=== PATIENT | female | born 1990 | race African-American/Black ===

== ENCOUNTER 2017-09-02 15:16 | Inpatient (IN) | payer BC, MEDICAID ==
[~2017-09-02] VITALS: Ht 167.6 cm; Wt 115.0 kg
[~2017-09-02 15:16] MED LIST: LACTATED RINGER'S 1000 ML INJ 1,000 ML IV ONE; ONDANSETRON HCL 4 MG/2 ML VIAL IV ONE; OXYTOCIN 10 UNIT/ML AMP IV ONE; PHENYLEPH/NS 1000 MCG/10 ML SYR IV ONE; ceFAZolin INJ 1,000 MG VIAL IV ONE
--- NOTE | 2017-09-02 15:40 | PD ---
HPI Chief Complaint SROM Date Seen: September 02, 2017 Travel History International Travel<30 Days: No Contact w/Intl Traveler<30Days: No Known Affected Area: No History of Present Illness HPI Patient is a 26-year-old female at 37/1 weeks gestation who was brought in by [facility] due to spontaneous rupture of membranes. Patient denies vaginal bleeding. Endorses contractions and movement. Patient is GBS negative. Denies chest pain shortness of breath, nausea, vomiting, fever or chills. Of note patient did not have a planned repeat scheduled for this as she wanted to attempt . Para: 1 : 2 History Past Medical History Medical History: Denies Significant Hx Obstetric History Obstetric History C/S x1 due to macrosomia no complications with this thus far. Allergies-Medications (Allergen,Severity, Reaction): Coded Allergies: No Known Allergies (Unverified , 09/02/17) Home Meds Reported Medications Ferrous Gluconate (Iron) 236 Mg (27 Mg Iron) Tab 09/02/17 Vit-Iron Carbonyl ( Plus Iron 29-1 mg) 29 Mg Iron-1 Mg Tab, 1 TAB PO DAILY for Nutritional Supplement, #30 TAB 0 Refills 09/02/17 Review of Systems Except as stated in HPI: all other systems reviewed are Neg (per HPI) Physical Exam Narrative GENERAL: Well-nourished, well-developed patient. SKIN: Warm and dry. HEAD: Normocephalic and atraumatic. EYES: No scleral icterus. No injection or drainage. ENT: No nasal drainage noted. Mucous membranes pink. Airway patent. NECK: Supple, trachea midline. No JVD. CARDIOVASCULAR: Regular rate and rhythm without murmurs, gallops, or rubs. RESPIRATORY: Breath sounds equal bilaterally. No accessory muscle use. ABDOMEN/GI: Abdomen soft, non-tender, bowel sounds present, no rebound, no guarding Gravid to 37 weeks size GENITOURINARY: External Genitalia: intact and normal in appearance Dilatation: 1 Effacement: 50 Station: -3 Presentation: vertex Membranes: SROM Uterine Contractions: irregular contractions FHT's: Category: 1 Baseline: 140 Reactive: yes Variability: moderate Decels:none EXTREMITIES: No cyanosis or edema. BACK: Nontender without obvious deformity. No CVA tenderness. NEUROLOGICAL: Awake and alert. Motor and sensory grossly within normal limits. Five out of 5 muscle strength in all muscle groups. Normal speech. MDM Medical Record Reviewed: Yes Plan Patient is a 26-year-old female at 37/1 weeks gestation who was brought in by [facility] due to spontaneous rupture of membranes. IUP at 37/1 weeks gestation 1. continue to monitor VS 2. catergory 1, NST reassuring 3. GBS negative, records reviewed 3. f/u cbc, cmp, ua and p/c ratio 4. admit patient to L&D SDW Dr. Chau Hopson,Guera Grace MD, R1 September 02, 2017 15:40
[2017-09-02] MEDS ORDERED: LACTATED RINGER'S 1000 ML INJ 1,000 ML IV PRN (15:49)
[2017-09-02] MEDS ORDERED: PREN29TA PO (15:56)
[2017-09-02] MEDS ORDERED: IRON27TA (15:57)
[2017-09-02] MEDS ORDERED: LIDOCAINE HCL 1% 50 ML VIAL I-DERMAL PRN (16:00)
[2017-09-02] MEDS ORDERED: ONDANSETRON HCL 4 MG/2 ML VIAL IV PUSH PRN ×2 (16:00→23:15)
[2017-09-02] MEDS ORDERED: OXYTOCIN 30 UNITS-500ML PREMIX 500 ML IV PRN (16:00)
[2017-09-02] MEDS ORDERED: SODIUM CHLORID 0.9% 500 ML INJ 500 ML IV PRN (16:00)
[2017-09-02] MEDS ORDERED: LIDOCAINE HCL 1% 50 ML VIAL INFIL PRN (16:00)
[2017-09-02] MEDS ORDERED: OXYTOCIN 30 UNITS-500ML PREMIX 500 ML IV ONE ×2 (16:00→23:15)
[2017-09-02] MEDS ORDERED: CITRIC ACID-SODIUM CITRATE LIQ 30 ML UDC PO SCH ×2 (16:00→21:15)
[2017-09-02] MEDS ORDERED: MINERAL OIL 10 ML VIAL TOPICAL PRN (16:00)
[2017-09-02] MEDS ORDERED: SODIUM CHLOR 0.9% 1000 ML INJ 1,000 ML IV PRN (16:09)
--- NOTE | 2017-09-02 16:25 | HHI.HP ---
History & Physical H&P HPI Chief Complaint SROM Date Seen: September 02, 2017 Travel History International Travel<30 Days: No Contact w/Intl Traveler<30Days: No Known Affected Area: No History of Present Illness HPI Patient is a 26-year-old female at 37/1 weeks gestation who was brought in by [facility] due to spontaneous rupture of membranes. Patient denies vaginal bleeding. Endorses contractions and movement. Patient is GBS negative. Denies chest pain shortness of breath, nausea, vomiting, fever or chills. Of note patient did not have a planned repeat scheduled for this as she wanted to attempt . Para: 1 : 2 History (Limited) History Past Medical History Medical History: Denies Significant Hx Obstetric History Obstetric History C/S x1 due to macrosomia no complications with this thus far. Allergies-Medications Allergies-Medications (Allergen,Severity, Reaction): Coded Allergies: No Known Allergies (Unverified , 09/02/17) Home Meds Reported Medications Ferrous Gluconate (Iron) 236 Mg (27 Mg Iron) Tab 09/02/17 Vit-Iron Carbonyl ( Plus Iron 29-1 mg) 29 Mg Iron-1 Mg Tab, 1 TAB PO DAILY for Nutritional Supplement, #30 TAB 0 Refills 09/02/17 ROS Review of Systems Except as stated in HPI: all other systems reviewed are Neg (per HPI) Physical Exam Physical Exam Narrative GENERAL: Well-nourished, well-developed patient. SKIN: Warm and dry. HEAD: Normocephalic and atraumatic. EYES: No scleral icterus. No injection or drainage. ENT: No nasal drainage noted. Mucous membranes pink. Airway patent. NECK: Supple, trachea midline. No JVD. CARDIOVASCULAR: Regular rate and rhythm without murmurs, gallops, or rubs. RESPIRATORY: Breath sounds equal bilaterally. No accessory muscle use. ABDOMEN/GI: Abdomen soft, non-tender, bowel sounds present, no rebound, no guarding Gravid to 37 weeks size GENITOURINARY: External Genitalia: intact and normal in appearance Dilatation: 1 Effacement: 50 Station: -3 Presentation: vertex Membranes: SROM Uterine Contractions: irregular contractions FHT's: Category: 1 Baseline: 140 Reactive: yes Variability: moderate Decels:none EXTREMITIES: No cyanosis or edema. BACK: Nontender without obvious deformity. No CVA tenderness. NEUROLOGICAL: Awake and alert. Motor and sensory grossly within normal limits. Five out of 5 muscle strength in all muscle groups. Normal speech. Data Data [facility] Medical Record Reviewed: Yes Plan Patient is a 26-year-old female at 37/1 weeks gestation who was brought in by [facility] due to spontaneous rupture of membranes. IUP at 37/1 weeks gestation 1. continue to monitor VS 2. catergory 1, NST reassuring 3. GBS negative, records reviewed 3. f/u cbc, cmp, ua and p/c ratio 4. admit patient to L&D SDW Dr. Chau Hopson,Guera Grace MD, R1 September 02, 2017 16:25
[2017-09-02 16:33] LABS: HEMATOCRIT 35.8 % (35.0-46.0); HEMOGLOBIN 11.5 GM/DL (11.6-15.3); MEAN CELL VOLUME 79.6 FL (80.0-100.0); MEAN CORPUSCULAR HEMOGLOBIN 25.6 PG (27.0-34.0); MEAN CORPUSCULAR HGB CONC 32.1 % (32.0-36.0); MEAN PLATELET VOLUME 9.3 FL (7.0-11.0); PLATELET COUNT 181 TH/MM3 (150-450); RED CELL DISTRIBUTION WIDTH 21.1 % (11.6-17.2); WHITE BLOOD COUNT 6.2 TH/MM3 (4.0-11.0)
[2017-09-02 16:43] LABS: BILIRUBIN, URINE NEG (NEG); BLOOD, URINE NEG (NEG); GLUCOSE,URINE NEG (NEG); HYALINE CAST, URINE 2 /lpf (RARE); KETONE, URINE 40 mg/dL (NEG); MUCUS URINE FEW /lpf (OCC); NITRITE,URINE NEG (NEG); SQUAMOUS EPITHELIAL CELL URINE 2 /hpf (0-5); URINE COLOR YELLOW (YELLW/STRAW); URINE LEUKOCYTE ESTERASE NEG (NEG)
[2017-09-02 16:52] LABS: ALKALINE PHOSPHATASE 106 U/L (45-117); TOTAL BILIRUBIN ADULT 0.3 MG/DL (0.2-1.0); TOTAL PROTEIN 7.4 GM/DL (6.4-8.2)
[2017-09-02 17:21] LABS: ALBUMIN 2.5 GM/DL (3.4-5.0); ALT (GPT) 16 U/L (10-53); AST (GOT) 37 U/L (15-37); BICARBONATE 18.3 MEQ/L (21.0-32.0); BLOOD UREA NITROGEN 8 MG/DL (7-18); CALCIUM 9.3 MG/DL (8.5-10.1); CHLORIDE 107 MEQ/L (98-107); CREATININE 0.55 MG/DL (0.50-1.00); GLOMERULAR FILTRATION RATE 159 ML/MIN (>89); GLUCOSE,RANDOM 93 MG/DL (74-106); SODIUM (NA) 136 MEQ/L (136-145)
[2017-09-02] MEDS: LACTATED RINGER'S 1000 ML INJ 1,000 ML IV SCH ×2 (18:36→23:49)
[2017-09-02] MEDS ORDERED: TERBUTALINE INJ 1 MG/ML AMP ONE (20:41)
[2017-09-02] MEDS ORDERED: MORPHINE SULFATE PF 5 MG/10 ML VIAL ONE (21:11)
[2017-09-02] MEDS ORDERED: ACETAMINOPHEN 1000 MG/100 ML 100 ML IV ONE (21:11)
[2017-09-02] MEDS: LACTATED RINGER'S 1000 ML IV SCH (21:15)
[2017-09-02] MEDS ORDERED: ceFAZolin 2 GM PREMIX 50 ML IV SCH (21:15)
[2017-09-02] MEDS ORDERED: LACTATED RINGER'S 1000 ML IV ONE (21:15)
--- NOTE | 2017-09-02 21:18 | PD.LABORPN ---
Subjective Subjective pt. in bed w/ pitocin running. called to see pt. by nursing 05/14 ? other than cephalic presentation. pt. had u/s on present that show cephalic. on bed side u/s presentation now transverse. Objective Objective Pelvic Exam: Cervix: [-] Dilatation: [-] Effacement: [-] Station: [-] Presentation: [-] Membranes: [intact or ruptured] Uterine Contractions: [-] FHT's: Category: [-] Baseline: [-] Reactive: [-] Variability: [-] Decels: [-] Pt started active labor?: No Assessment/Plan Problem List: (1) Rupture of membranes with clear amniotic fluid (2) History of section complicating ICD Codes: O34.219 - Maternal care for unspecified type scar from previous delivery (3) Transverse lie ICD Codes: O32.2XX0 - Maternal care for transverse and oblique lie, not applicable or unspecified Plan: Assessment and Plan transverse lie and vaginal delivery d/w pt. section /2 transverse lie d/w pt. risks benefits and alternatives d/w pt. all ? answered. pt. desire cd. Domo Ritchie Jr., MD September 02, 2017 21:18
[2017-09-02] MEDS ORDERED: EPIDURAL-DO NOT ADMINISTER ANTICOAGULANTS PRN (22:00)
[2017-09-02] MEDS ORDERED: EPIDURAL-DIPHENHYDRAMINE HCL 50 MG CAP PO PRN (22:00)
[2017-09-02] MEDS ORDERED: EPIDURAL-NO SYSTEMIC NARCOTICS PRN (22:00)
[2017-09-02] MEDS ORDERED: EPIDURAL-DIPHENHYDRAMINE HCL 50 MG/ML VIAL IV PUSH PRN (22:00)
[2017-09-02] MEDS ORDERED: EPIDURAL-NALOXONE HCL 0.4 MG/ML AMP IV PUSH PRN (22:00)
[2017-09-02] MEDS ORDERED: LIDOCAINE 1.5%/EPINEPHrine 1:200,000 PF 5 ML AMP ONE (22:28)
--- NOTE | 2017-09-02 23:14 | PD.OB.DELI ---
Procedure Note Section Procedure Pre Op Diagnosis: (1) Transverse lie (2) Rupture of membranes with clear amniotic fluid (3) History of section complicating Post Op Diagnosis: (1) Transverse lie (2) Rupture of membranes with clear amniotic fluid (3) History of section complicating Performed by Domo Ritchie Procedure: Repeat Low Transverse Sec Indication for delivery: Other Informed consent obtained: For procedure Confirmed correct: Patient, Time-out taken Anesthesia: Spinal Medication prior to procedure: As documented in eMAR Monitoring during procedure: Blood pressure monitoring, radiation monitor, Pulse oximetry Urinary catheter: Inserted using sterile technique Sterile preparation: With 2% chlorexidine (Hibiclens) Position: Supine with wedge to left side Operative Features Skin Incision: Pfannenstiel Uterine Incision: Low transverse w/knife / scissors Membranes Ruptured: Previously Presentation: Breech Delivery date: September 02, 2017 Delivery time: 22:06 Delivery of infant: Uneventful Infant: Male One Minute : 9 Five Minute : 9 Weight: 3260 Status of : Viable Placenta delivered: Intact, Sent to pathology Medications: Antibiotics Estimated blood loss: 700 Procedure tolerated: Well Maternal Condition: Stable Condition: Stable Procedure in detail see dictated op note Domo Ritchie Jr., MD September 02, 2017 23:14
[2017-09-02] MEDS ORDERED: SODIUM CHLORIDE 0.9% FLUSH 10 ML FLUSH IV FLUSH PRN (23:15)
[2017-09-02] MEDS ORDERED: KETOROLAC TROMETHAMINE 60 MG/2 ML (IM) VIAL IM PRN (23:15)
[2017-09-02] MEDS ORDERED: SIMETHICONE 80 MG CHEWABLE TAB PO PRN (23:15)
[2017-09-02] MEDS ORDERED: ACETAMINOPHEN 325 MG TAB PO PRN (23:15)
[2017-09-02 23:25] LABS: LYMPH % 20.6 % (9.0-44.0); NEUT % 68.8 % (16.0-70.0)
[2017-09-02 23:26] LABS: AUTOMATED NEUTROPHIL # 4.1 TH/MM3 (1.8-7.7); BASOPHIL % 0.5 % (0.0-2.0); EOSINOPHIL # 0.1 TH/MM3 (0-0.4); EOSINOPHIL % 1.3 % (0.0-4.0); LYMPHOCYTE # 1.2 TH/MM3 (1.0-4.8); MONO % 8.8 % (0.0-8.0); MONOCYTE # 0.5 TH/MM3 (0-0.9)
--- NOTE | 2017-09-03 00:53 | MP ---
cc: Domo Khan MD DATE OF OPERATION: 09/02/2017 PREOPERATIVE DIAGNOSIS: Intrauterine at 37 and 1/7 weeks, history of prior delivery, spontaneous rupture of the membranes, failed induction of labor, transverse lie. POSTOPERATIVE DIAGNOSIS: Intrauterine at 37 and 1/7 weeks, history of prior delivery, spontaneous rupture of the membranes, failed induction of labor, transverse lie. PROCEDURE PERFORMED: Repeat low transverse delivery via Pfannenstiel skin incision. SURGEON: Domo Ritchie MD BEE FARMER: Staff. ESTIMATED BLOOD LOSS: 700 mL ANESTHESIA: Spinal anesthesia with Duramorph. COMPLICATIONS: None. URINE OUTPUT: Clear urine throughout the procedure. FINDINGS: A viable male in lyly breech presentation. scores of 9 at 1 minute and 9 at 5 minutes. Weight was 3260 grams. Normal tubes and ovaries noted at the time of the procedure. INDICATIONS FOR PROCEDURE: This is a 26-year-old, now G2, P2-0-0-2, who presented to [facility] with spontaneous rupture of the membranes. The patient with history of prior delivery, desirous of trial of labor after . presentation was checked by ultrasound prior to induction with Pitocin. The patient was noted with severe pain and on cervical check by nursing, abnormal part was presenting. Ultrasound done and noted transverse lie. Treatment options were given. The patient was desirous of surgical management. DESCRIPTION OF PROCEDURE: The patient was taken to the operating room with IV fluids running. Spinal anesthesia with Duramorph was applied and found to be adequate. She was prepped and draped in a dorsal supine position with a leftward tilt. A Pfannenstiel skin incision was performed through her old scar, carried down to the underlying layer of fascia with the Bovie. The fascia was incised in the midline and extended laterally. Valerio clamps were used to grasp superior aspect of the fascial incision. Underlying rectus muscles were dissected sharply without difficulty. The parietal peritoneum was identified, entered bluntly and extended superiorly and inferiorly with good visualization of the bladder. The bladder blade was inserted and the lower uterine segment was incised transversely without difficulty. The placenta was noted to be anterior and the infant's head was noted to be superior. The 's butt and legs were delivered without difficulty. The infant was delivered to the shoulders. Both arms were delivered and the Ouietahps-Xhzrvsp-Itec maneuver was performed. The infant's head was delivered without difficulty or trauma. The cord was delayed, doubly clamped and cut. Cord bloods were obtained. The placenta was delivered without difficulty. Uterus was exteriorized and cleared of all clots and debris. The uterine incision was closed in 2 layers of #1 Vicryl, one to close and a second was performed in an imbricating layer. Excellent hemostasis was noted. The uterus was returned to the pelvis. The pelvis and abdomen was copiously irrigated with normal saline. The pericolic gutters were noted to be cleaned and the parietal peritoneum was reapproximated with a 3-0 plain gut suture in multiple interrupted fashion. Subfascial tissues were noted to be hemostatic and the rectus fascia was closed with 0 PDS suture in a running fashion. Subcuticular tissues were noted to be hemostatic and reapproximated with a 3-0 plain gut suture in a running fashion. The skin was closed with regina. Sponge, lap and needle counts were correct x 2. The patient was transferred to PACU in stable condition. She received 2 grams of Ancef prior to the procedure. MD DESHAWN York Jr/DRISS , 11:19 PM , 12:52 AM
[2017-09-03 01:12] VITALS: BP 122/69; PULSE 86; RESP 18; TEMP 98.2
[2017-09-03] MEDS ORDERED: LACTATED RINGER'S 1000 ML INJ 1,000 ML IV SCH (04:07)
[2017-09-03] MEDS ORDERED: OXYTOCIN 30 UNITS-500ML PREMIX 500 ML IV PRN (04:15)
[2017-09-03 04:33] VITALS: BP 104/62; PULSE 83; RESP 18; TEMP 98.2
[2017-09-03 06:00] LABS: AUTOMATED NEUTROPHIL # 9.7 TH/MM3 (1.8-7.7); BASOPHIL % 0.1 % (0.0-2.0); EOSINOPHIL % 0.1 % (0.0-4.0); HEMATOCRIT 34.5 % (35.0-46.0); LYMPH % 8.6 % (9.0-44.0); MEAN CELL VOLUME 81.5 FL (80.0-100.0); MEAN CORPUSCULAR HEMOGLOBIN 25.9 PG (27.0-34.0); MEAN CORPUSCULAR HGB CONC 31.8 % (32.0-36.0); MEAN PLATELET VOLUME 9.2 FL (7.0-11.0); MONO % 6.7 % (0.0-8.0); MONOCYTE # 0.8 TH/MM3 (0-0.9); NEUT % 84.5 % (16.0-70.0); PLATELET COUNT 159 TH/MM3 (150-450); RED BLOOD COUNT 4.24 MIL/MM3 (4.00-5.30); RED CELL DISTRIBUTION WIDTH 21.2 % (11.6-17.2); WHITE BLOOD COUNT 11.5 TH/MM3 (4.0-11.0)
--- NOTE | 2017-09-03 08:23 | HHI.OB ---
Subjective Post Operative Day: 1 Remarks Patient seen and examined this morning. AFVSS overnight. Postoperative day #1. Patient states her pain is currently well controlled. Denies significant vaginal bleeding or passage of vaginal clots. Denies dysuria. No breast tenderness. She is feeding the baby via breast. Appetite good. No nausea or vomiting. Not yet ambulating. Denies fevers or chills, chest pain, calf pain, shortness of breath, or cough. She otherwise has no other complaints or concerns this morning. Objective Vitals/I&O Vital Signs Date Time Temp Pulse Resp B/P (MAP) Pulse Ox O2 Delivery O2 Flow Rate FiO2 09/03/17 04:33 98.2 83 18 104/62 (76) 09/03/17 01:12 98.2 86 18 122/69 (86) Result Diagram: 09/03/17 0453 09/02/17 1615 Objective Remarks GENERAL: Well-nourished, well-developed patient. CARDIOVASCULAR: Regular rate and rhythm without murmurs, gallops, or rubs. RESPIRATORY: Breath sounds equal bilaterally. No accessory muscle use. ABDOMEN/GI: Abdomen soft, non-tender, bowel sounds present. Incision: Covered by dressing. Appearing dry with minimal amount of discharge on the dressing noted. Fundus: Firm, non-tender at umbilicus. GENITOURINARY: Light to moderate bleeding. EXTREMITIES: No cyanosis or edema, non-tender, without signs of DVT. Medications and IVs Current Medications Medications (Trade) Dose Ordered Sig/Indy Route Start Time Stop Time Status Last Admin Lactated Ringer's 1,000 ml @ 125 mls/hr Q8H IV 09/02/17 15:49 09/02/17 23:49 Lactated Ringer's 1,000 ml @ 3,000 mls/hr Q20M PRN IV 09/02/17 15:49 Sodium Chloride 500 ml @ 1,000 mls/hr ONCE PRN IV 09/02/17 16:00 09/09/17 15:59 Sodium Chloride 1,000 ml @ 100 mls/hr Q10H PRN IV 09/02/17 16:09 (Xylocaine 1% Inj (50 ml)) 0.1 ml UNSCH X1 PRN I-DERMAL 09/02/17 16:00 09/05/17 15:59 (Bicitra Liq) 30 ml SKIN LAP BONDER PO 09/02/17 16:00 09/06/17 15:59 09/02/17 23:47 (Zofran Inj) 4 mg Q6H PRN IV PUSH 09/02/17 16:00 (fentaNYL INJ) 50 mcg Q1H PRN IV PUSH 09/02/17 16:00 (fentaNYL INJ) 100 mcg Q1H PRN IV PUSH 09/02/17 16:00 09/02/17 18:44 (Xylocaine 1% Inj (50 ml)) 10 ml UNSCH X1 PRN INFIL 09/02/17 16:00 09/04/17 15:59 (Muri-Lube Oil) 10 ml UNSCH PRN TOPICAL 09/02/17 16:00 Oxytocin 500 ml @ 0 mls/hr TITRATE PRN IV 09/02/17 16:00 09/02/17 18:38 Lactated Ringer's 1,000 ml @ 150 mls/hr Q6H40M IV 09/02/17 21:15 (Bicitra Liq) 30 ml SKIN LAP BONDER PO 09/02/17 21:15 09/05/17 21:14 Cefazolin Sodium/ Dextrose 50 ml @ 100 mls/hr SKIN LAP BONDER IV 09/02/17 21:15 09/05/17 21:14 Lactated Ringer's 1,000 ml @ 100 mls/hr Q10H IV 09/03/17 04:07 09/04/17 00:06 Oxytocin 500 ml @ 100 mls/hr UNSCH X1 PRN IV 09/03/17 04:15 09/04/17 04:14 (NS Flush) 2 ml BID IV FLUSH 09/03/17 09:00 (NS Flush) 2 ml UNSCH PRN IV FLUSH 09/02/17 23:15 (Mylicon Chew) 80 mg QID PRN PO 09/02/17 23:15 (Tylenol) 650 mg Q6H PRN PO 09/02/17 23:15 (Toradol Inj) 30 mg Q6H PRN IM 09/02/17 23:15 09/03/17 23:14 (Percocet 5-325 Mg) 1 tab Q4H PRN PO 09/02/17 23:15 (Percocet 5-325 Mg) 2 tab Q4H PRN PO 09/02/17 23:15 (Yumiko-Colace) 2 tab Q12H PRN PO 09/02/17 23:15 (M-M-R Ii Inj) 0.5 ml ONCE ONCE SQ 09/03/17 16:00 09/03/17 16:01 (Boostrix Inj) 0.5 ml ONCE ONCE IM 09/03/17 16:00 09/03/17 16:01 (Zofran Inj) 4 mg Q6H PRN IV PUSH 09/02/17 23:15 ([facility] Nursing Information) NO SYSTEMIC NARCOTICS TO BE GIVEN FO... UNSCH PRN .XX 09/02/17 22:00 09/03/17 21:59 (Narcan Inj) 0.4 mg UNSCH PRN IV PUSH 09/02/17 22:00 09/03/17 21:59 (Benadryl Inj) 25 mg Q6H PRN IV PUSH 09/02/17 22:00 09/03/17 21:59 (Benadryl) 50 mg Q6H PRN PO 09/02/17 22:00 09/03/17 21:59 ([facility] Nursing Information) ALL NURSING DEPARTMENTS UNSCH PRN .XX 09/02/17 22:00 09/03/17 21:59 Assessment/Plan Problem List: (1) care following delivery ICD Codes: Z39.2 - Encounter for routine follow-up Assessment and Plan 26 year-old POD#1 s/p . 1. Postoperative Care - AFVSS - Incision covered by bandage, appearing dry - Postop H&H reviewed and within normal limits - Percocet and Motrin prn pain - Encouraged OOB, as tolerated - Advised pelvic rest x 6 weeks - - F/u in 1 week with OB provider for incision check after stable for hospital discharge wdw OB hospitalist Discharge Planning Anticipate discharge in 1-2 days pending stable clinical course Hi Acosta MD R2 September 03, 2017 08:23
[2017-09-03] MEDS: SODIUM CHLORIDE 0.9% FLUSH 10 ML FLUSH IV FLUSH SCH ×2 (09:00→21:00)
[2017-09-03] MEDS: DOCUSATE SODIUM 50 MG/SENNA 8.6 MG TAB PO PRN ×2 (10:31→23:59)
[2017-09-03] MEDS: oxyCODONE/ACETAMINOPHEN 5 MG/325 MG TAB PO PRN ×4 (10:31→23:59)
[2017-09-03] MEDS: IBUPROFEN 600 MG TAB PO PRN ×3 (11:07→23:59)
[2017-09-03 15:50] VITALS: BP 124/80; PULSE 82; RESP 20; TEMP 98.2
[2017-09-03] MEDS ORDERED: MEASLES, MUMPS, RUBELLA VACCINE 0.5 ML VIAL SQ ONE (16:00)
[2017-09-03] MEDS ORDERED: DIPHTH/TETANUS/ACEL PERTUSSIS (BOOSTER) 0.5 ML VIAL/PFS IM ONE (16:00)
[2017-09-04] MEDS ORDERED: diphenhydrAMINE HCL 50 MG CAP PO PRN (04:15)
[2017-09-04] MEDS: oxyCODONE/ACETAMINOPHEN 5 MG/325 MG TAB PO PRN ×5 (04:19→21:09)
[2017-09-04 08:00] VITALS: BP 130/67; PULSE 94; RESP 20; TEMP 98.7; O2SAT 93
[2017-09-04 08:15] VITALS: BP 114/69; PULSE 80; RESP 18; TEMP 98.3
[2017-09-04] MEDS: IBUPROFEN 600 MG TAB PO PRN ×3 (08:20→21:10)
[2017-09-04] MEDS: SODIUM CHLORIDE 0.9% FLUSH 10 ML FLUSH IV FLUSH SCH (08:20)
--- NOTE | 2017-09-04 08:48 | HHI.OB ---
Subjective Remarks 26 year old female s/p C/S for malpresentation at 37 wks gestation, POD 2. AFVSS. Patient reports she is feeling well except persistent post-op pain. Bleeding is decreasing and pain is well-controlled as long as she takes pain meds regularly. She is breast feeding and bonding well with baby. Ambulating without difficulties. She is tolerating a diet without nausea or vomiting. Denies chest pain, dysuria, shortness of breath, or calf pain. Objective Vitals/I&O Vital Signs Date Time Temp Pulse Resp B/P (MAP) Pulse Ox O2 Delivery O2 Flow Rate FiO2 09/04/17 05:55 18 09/04/17 01:00 18 09/04/17 01:00 18 09/03/17 15:50 98.2 82 20 124/80 (95) Result Diagram: 09/03/17 0453 09/02/17 9425 Objective Remarks GENERAL: Well-nourished, well-developed patient. CARDIOVASCULAR: Regular rate and rhythm without murmurs, gallops, or rubs. RESPIRATORY: Breath sounds equal bilaterally. No accessory muscle use. ABDOMEN/GI: Abdomen soft, non-tender, bowel sounds present. Incision: Covered by dressing. Appearing dry with minimal amount of discharge on the dressing noted. Fundus: Firm, moderately tender at umbilicus. GENITOURINARY: Light to moderate bleeding. EXTREMITIES: No cyanosis or edema, non-tender, without signs of DVT. Medications and IVs Current Medications Medications (Trade) Dose Ordered Sig/Indy Route Start Time Stop Time Status Last Admin (Xylocaine 1% Inj (50 ml)) 0.1 ml UNSCH X1 PRN I-DERMAL 09/02/17 16:00 09/05/17 15:59 (Bicitra Liq) 30 ml RHEOLOGIST PO 09/02/17 16:00 09/06/17 15:59 09/02/17 23:47 (Zofran Inj) 4 mg Q6H PRN IV PUSH 09/02/17 16:00 (Xylocaine 1% Inj (50 ml)) 10 ml UNSCH X1 PRN INFIL 09/02/17 16:00 09/04/17 15:59 (Muri-Lube Oil) 10 ml UNSCH PRN TOPICAL 09/02/17 16:00 Oxytocin 500 ml @ 0 mls/hr TITRATE PRN IV 09/02/17 16:00 09/02/17 18:38 Lactated Ringer's 1,000 ml @ 150 mls/hr Q6H40M IV 09/02/17 21:15 (Bicitra Liq) 30 ml RHEOLOGIST PO 09/02/17 21:15 09/05/17 21:14 Cefazolin Sodium/ Dextrose 50 ml @ 100 mls/hr RHEOLOGIST IV 09/02/17 21:15 09/05/17 21:14 (NS Flush) 2 ml BID IV FLUSH 09/03/17 09:00 (NS Flush) 2 ml UNSCH PRN IV FLUSH 09/02/17 23:15 (Mylicon Chew) 80 mg QID PRN PO 09/02/17 23:15 (Tylenol) 650 mg Q6H PRN PO 09/02/17 23:15 (Percocet 5-325 Mg) 1 tab Q4H PRN PO 09/02/17 23:15 09/04/17 04:19 (Percocet 5-325 Mg) 2 tab Q4H PRN PO 09/02/17 23:15 09/04/17 08:20 (Yumiko-Colace) 2 tab Q12H PRN PO 09/02/17 23:15 09/03/17 23:59 (Zofran Inj) 4 mg Q6H PRN IV PUSH 09/02/17 23:15 (Motrin) 600 mg Q6H PRN PO 09/03/17 10:45 09/04/17 08:20 (Benadryl) 50 mg Q4H PRN PO 09/04/17 04:15 09/04/17 04:19 Assessment/Plan Problem List: (1) care following delivery ICD Codes: Z39.2 - Encounter for routine follow-up (2) delivery, delivered, current hospitalization ICD Codes: O82 - Encounter for delivery without indication Assessment and Plan 26 year-old POD#2 s/p for malpresentation Postoperative Care - AFVSS - Incision covered by bandage, appearing dry - Postop H&H reviewed and within normal limits - Percocet and Motrin prn pain - Encouraged OOB, as tolerated - Advised pelvic rest x 6 weeks - - F/u in 1 week with OB provider for incision check after stable for hospital discharge Discharge Planning Anticipate discharge in 1-2 days pending stable clinical course Jose Real MD R2 September 04, 2017 08:48
[2017-09-04] MEDS: LACTATED RINGER'S 1000 ML IV SCH ×2 (09:30→16:05)
[2017-09-04 12:00] VITALS: BP 135/69; PULSE 89; RESP 20; TEMP 99; O2SAT 94
[2017-09-04] MEDS: DOCUSATE SODIUM 50 MG/SENNA 8.6 MG TAB PO PRN (21:15)
[2017-09-05] MEDS: oxyCODONE/ACETAMINOPHEN 5 MG/325 MG TAB PO PRN ×4 (01:02→13:09)
[2017-09-05] MEDS: IBUPROFEN 600 MG TAB PO PRN ×2 (03:41→09:33)
[2017-09-05] MEDS ORDERED: IBUP-232 PO (06:48)
[2017-09-05] MEDS ORDERED: OXYC1TAB63 PO (06:48)
--- NOTE | 2017-09-05 06:48 | HHI.DCPOC ---
Discharge Care Plan Diagnosis: (1) delivery, delivered, current hospitalization (2) Transverse lie Report Symptoms to Your Doctor -Temperature above 100.5 degrees -Redness, of incision or excessive or foul smelling drainage -Unusual pain or calf pain -Increased vaginal bleeding -Painful or difficulty urinating -Feelings of extreme sadness or anxiety after 2 weeks Goals to Promote Your Health * To prevent worsening of your condition and complications * To maintain your health at the optimal level Directions to Meet Your Goals At your post- visit, have your doctor check your breast to make sure the mass is the same or improved. Right now seems benign/normal but needs a re- check Take your medications as prescribed Follow your dietary instruction Follow activity as directed Ensure plenty of rest for recovery Drink fluids for hydration Keep your appointments as scheduled Take your immunizations and boosters as scheduled If your symptoms worsen call your PCP, if no PCP go to Urgent Care Center or Emergency Room Smoking is Dangerous to Your Health. Avoid second hand smoke Call the 24-hour crisis hotline for domestic abuse at Jose Real MD R2 September 05, 2017 06:48
[2017-09-05 08:00] VITALS: BP 143/88; PULSE 81; RESP 18; TEMP 97.9
[2017-09-05] MEDS ORDERED: medroxyPROGESTERone ACETATE SUSP 150 MG/ML SYRINGE IM ONE (08:15)
--- NOTE | 2017-09-05 09:04 | HHI.OB ---
Subjective Remarks 26 year old female s/p C/S for transverse lie at 37 wks gestation, POD 3. AFVSS. Patient reports she is feeling well. Bleeding is decreasing and pain is well-controlled. She is breast feeding and bonding well with baby. Ambulating without difficulties. She is tolerating a diet without nausea or vomiting. Denies chest pain, dysuria, shortness of breath, or calf pain. Objective Vitals/I&O Vital Signs Date Time Temp Pulse Resp B/P (MAP) Pulse Ox O2 Delivery O2 Flow Rate FiO2 09/04/17 12:00 99.0 89 20 135/69 (91 94 Result Diagram: 09/03/17 7674 09/02/17 1615 Objective Remarks GENERAL: Well-nourished, well-developed patient. CARDIOVASCULAR: Regular rate and rhythm without murmurs, gallops, or rubs. RESPIRATORY: Breath sounds equal bilaterally. No accessory muscle use. ABDOMEN/GI: Abdomen soft, non-tender, bowel sounds present. Incision: Covered by dressing. Appearing dry with minimal amount of old blood on the dressing noted. Fundus: Firm, moderately tender at 2 cm below umbilicus. BREASTS: With apprentice technician present, bilateral breasts examined. No asymmetry or skin changes. Irregular subcutaneous masses/fullness approx 3x3 cm in middle- inner and lower-outer areas of breast, non-tender, mobile. GENITOURINARY: Light to moderate bleeding. EXTREMITIES: No cyanosis or edema, non-tender, without signs of DVT. Medications and IVs Current Medications Medications (Trade) Dose Ordered Sig/Indy Route Start Time Stop Time Status Last Admin (Xylocaine 1% Inj (50 ml)) 0.1 ml UNSCH X1 PRN I-DERMAL 09/02/17 16:00 09/05/17 15:59 (Bicitra Liq) 30 ml AUTOMATIC RIVETING MACHINE OPERATOR PO 09/02/17 16:00 09/06/17 15:59 09/02/17 23:47 (Zofran Inj) 4 mg Q6H PRN IV PUSH 09/02/17 16:00 (Muri-Lube Oil) 10 ml UNSCH PRN TOPICAL 09/02/17 16:00 Oxytocin 500 ml @ 0 mls/hr TITRATE PRN IV 09/02/17 16:00 09/02/17 18:38 Lactated Ringer's 1,000 ml @ 150 mls/hr Q6H40M IV 09/02/17 21:15 (Bicitra Liq) 30 ml AUTOMATIC RIVETING MACHINE OPERATOR PO 09/02/17 21:15 09/05/17 21:14 Cefazolin Sodium/ Dextrose 50 ml @ 100 mls/hr AUTOMATIC RIVETING MACHINE OPERATOR IV 09/02/17 21:15 09/05/17 21:14 (NS Flush) 2 ml BID IV FLUSH 09/03/17 09:00 (NS Flush) 2 ml UNSCH PRN IV FLUSH 09/02/17 23:15 (Mylicon Chew) 80 mg QID PRN PO 09/02/17 23:15 09/04/17 21:15 (Tylenol) 650 mg Q6H PRN PO 09/02/17 23:15 (Percocet 5-325 Mg) 1 tab Q4H PRN PO 09/02/17 23:15 09/04/17 04:19 (Percocet 5-325 Mg) 2 tab Q4H PRN PO 09/02/17 23:15 09/05/17 05:11 (Yumiko-Colace) 2 tab Q12H PRN PO 09/02/17 23:15 09/04/17 21:15 (Zofran Inj) 4 mg Q6H PRN IV PUSH 09/02/17 23:15 (Motrin) 600 mg Q6H PRN PO 09/03/17 10:45 09/05/17 03:41 (Benadryl) 50 mg Q4H PRN PO 09/04/17 04:15 09/04/17 04:19 Assessment/Plan Problem List: (1) care following delivery ICD Codes: Z39.2 - Encounter for routine follow-up (2) delivery, delivered, current hospitalization ICD Codes: O82 - Encounter for delivery without indication Assessment and Plan 26 year-old POD#3 s/p for malpresentation Postoperative Care - AFVSS - Incision covered by bandage, appearing dry - Postop H&H reviewed and within normal limits - Percocet and Motrin prn pain - Encouraged OOB, as tolerated - Advised pelvic rest x 6 weeks - Contraception: desires Depo-Provera. Will give dose prior to D/C - F/u in 1 week with OB provider for incision check - D/C home today Breast mass - Noted breast mass yesterday evening of left breast at middle-inner and lower- outer areas. Improved today, no overlying skin changes. - Repeat clinical exam with DIES[employer]OM[employer]IVE [employer]ER provider at 6 weeks post-; likely diagnosis occluded milk duct which is resolving Jose Real MD R2 September 05, 2017 09:03
[2017-09-05] MEDS: DOCUSATE SODIUM 50 MG/SENNA 8.6 MG TAB PO PRN (09:32)
[2017-09-05] MEDS: SODIUM CHLORIDE 0.9% FLUSH 10 ML FLUSH IV FLUSH SCH (09:33)
[2017-09-05] MEDS: LACTATED RINGER'S 1000 ML IV SCH (13:03)
== END 2017-09-05 13:50 | disposition home or self-care (01) | DRG 766 ==
LOC: HOBED 15:16 → H2EB 15:42 → H1EA 09-03 00:35
PROVIDERS: ADMIT Obstetrics & Gynecology; ATTEND Obstetrics & Gynecology
PROC: 10D00Z1 Extraction of Products of Conception, Low, Open Approach (ICD-10-PCS; principal; 2017-09-02)
PROC: 3E033VJ Introduction of Other Hormone into Peripheral Vein, Percutaneous Approach (ICD-10-PCS; 2017-09-02)
DX: O32.2XX0 Maternal care for transverse and oblique lie, not applicable or unspecified (principal); O61.9 Failed induction of labor, unspecified; O32.1XX0 Maternal care for breech presentation, not applicable or unspecified; O92.79 Other disorders of lactation; Z37.0 Single live birth; Z3A.37 37 weeks gestation of pregnancy
CPT/HCPCS: 80053; 80307; 81001; 82570; 84156; 84550; 85025; 85027; 86850; 86900; 86901; 90715; G0481; J0131; J0690; J2274; J2370; J2405; J2590; J3010; J3105; J7120; Q0163